=== PATIENT | female | born 1940 | race Asian ===

== ENCOUNTER → 2016-08-06 | Outpatient (CLI) | payer OTHER ==
[~2016-08-06] MED LIST: B-CO1CAP5 PO; BIOT1CAP3 PO; CALC-51 PO; CEPH500C2 PO; CHOL1TAB46 PO; GLUC10007 PO; HYDR-5688 PO; LUTE15CA PO; MECL1TAB42 PO; MELA3CAP PO; MULT-506 PO; OMEG10007 PO; TRAZ50TA35 PO; VITA100C4 PO
--- NOTE | 2016-08-06 15:40 | MAMMOGRAPHY REPORT ---
BILATERAL DIGITAL SCREENING MAMMOGRAM WITH CAD: 08/06/2016 CLINICAL HISTORY: Routine screening. Patient has no complaints. TECHNIQUE: Current study was also evaluated with a Computer Aided Detection (CAD) system. Bilatera l CC and MLO views were obtained. COMPARISON: Comparison is made to exams dated: 08/04/2015 mammogram, 08/02/2014 mammogram, 08/01/2013 ma mmogram, 07/31/2012 mammogram, 07/29/2011 mammogram, and 07/28/2010 mammogram - [facility] enter. BREAST COMPOSITION: The tissue of both breasts is heterogeneously dense, which may obscure small ma sses. FINDINGS: There is an approximately 2.8 cm focal asymmetry seen within the right upper inner quadra nt, for which spot compression tomosynthesis views and possible breast ultrasound are recommended fo r further evaluation. The remainder of both breasts are stable compared to prior exams, without suspicious masses, calcifi cations, or areas of architectural distortion noted. Bilateral benign-appearing calcifications are stable compared to multiple prior exams. IMPRESSION: ACR BI-RADS CATEGORY 0: INCOMPLETE EVALUATION: NEED ADDITIONAL IMAGING EVALUATION Right breast focal asymmetry, for which additional imaging evaluation is recommended. The patient w ill be called to schedule an appointment. Approximately 10% of breast cancers are not detected with mammography. A negative mammographic repor t should not delay biopsy if a clinically suggestive mass is present. Rochelle Camejo M.D. /:08/06/2016 14:03:06 Manager Real Estate: Demetra Figueroa RT(R)(Aaliyah)(BD), [facility] letter sent: Addl Imaging 0 BI-RADS Code: ACR BI-RADS Category 0: Incomplete Evaluation: Need Additional Imaging Evaluation
== END | disposition home or self-care (01) ==
LOC: C.MAMM 10:21
PROVIDERS: ATTEND Internal Medicine
DX: Z12.31 Encounter for screening mammogram for malignant neoplasm of breast (principal); R92.8 Other abnormal and inconclusive findings on diagnostic imaging of breast

== ENCOUNTER → 2016-08-18 | Outpatient (CLI) | payer OTHER ==
--- NOTE | 2016-08-18 14:54 | MAMMOGRAPHY REPORT ---
UNILATERAL RIGHT DIGITAL DIAGNOSTIC MAMMOGRAM TOMOSYNTHESIS AND TARGETED RIGHT ULTRASOUND: 08/18/2016 CLINICAL HISTORY: Callback from screening mammogram for right breast asymmetry. At the time of the diagnostic workup, the patient reports a new palpable lump with associated pain in the right breast which she has noticed since her mammogram. TECHNIQUE: Breast tomosynthesis in addition to standard 2D mammography was performed. Spot compression right CC and MLO 2-D and tomosynthesis images were obtained. COMPARISON: Comparison is made to exams dated: 08/04/2015 mammogram, 08/01/2013 mammogram, 08/02/2014 ma mmogram, 07/31/2012 mammogram, 07/29/2011 mammogram, and 07/28/2010 mammogram - [facility] enter. BREAST COMPOSITION: The tissue of the right breast is heterogeneously dense, which may obscure smal l masses. FINDINGS: Spot compression views of the right breast demonstrate a persistent ill-defined asymmetry in the right upper and slightly medial right breast. The area is ill-defined and difficult to prosper ure mammographically but measures approximately 2.6 cm. Targeted ultrasound was performed of the area of the mammographic mass as well as the area of the pa lpable lump pointed out by the patient. In the right breast at 12:00, 2 cm from the nipple, there i s a hypoechoic solid mass with non-circumscribed margins which measures 1.9 x 1.3 x 2.1 cm. This co rresponds with the mammographic asymmetry and also corresponds with the tender palpable lump pointed out by the patient. The mass is suspicious for malignancy and ultrasound guided core needle biopsy is recommended for further evaluation. Targeted ultrasound was performed of the right axilla, which shows no clear evidence of axillary isidra nopathy. IMPRESSION: ACR BI-RADS CATEGORY 5: HIGHLY SUGGESTIVE OF MALIGNANCY, TARGETED ULTRASOUND ACR BI-RAD S CATEGORY 5: HIGHLY SUGGESTIVE OF MALIGNANCY Hypoechoic solid 2.1 cm mass in the right breast at 12:00 on ultrasound, which corresponds with the new mammographic focal asymmetry as well as a tender palpable lump pointed out by the patient. The mass is suspicious for malignancy and ultrasound-guided core needle biopsy is recommended for furthe r evaluation. A phone call was made to the physician's office to confirm faxed results were received. The patient has been verbally notified of the results. She tentatively scheduled the biopsy before leaving the department. Approximately 10% of breast cancers are not detected with mammography. A negative mammographic repor t should not delay biopsy if a clinically suggestive mass is present. Rochelle Camejo M.D. ah/:08/18/2016 10:41:02 Slasher Sawyer: Dorcas GUERRA(Eneida)(Aaliyah), [facility] letter sent: Abnormal 4/5 BI-RADS Code: ACR BI-RADS Category 5: Highly Suggestive Of Malignancy Ultrasound BI-RADS: ACR BI-RA DS Category 5: Highly Suggestive Of Malignancy
== END | disposition home or self-care (01) ==
LOC: C.MAMM 10:00
PROVIDERS: ATTEND Internal Medicine
DX: N63 Unspecified lump in breast (principal); R92.8 Other abnormal and inconclusive findings on diagnostic imaging of breast

== ENCOUNTER → 2016-08-26 | Outpatient (CLI) | payer OTHER ==
--- NOTE | 2016-08-26 11:23 | Discharge Instructions ---
Discharge Instructions Procedure Procedure Date: August 26, 2016. Reason for visit: Right Mass. Discharge Discharge Date: August 26, 2016. Discharge Diagnosis: status post breast biopsy Instructions Activity Recommendations: Additional Limitations (see below) Return to School/Work: no limitations Recommended Home Diet: No Limitations Provider Instructions: ACTIVITY RECOMMENDATIONS: * No lifting, pushing, pulling or exercising the affected side for three days. RETURN TO SCHOOL/WORK: * You may return to work/school after the procedure, but do not perform any strenuous activities for 24 to 48 hours. MEDICATIONS: * Tylenol (two 325 mg) every four to six hours if needed for mild pain (if not allergic to Tylenol). DIET: * Resume previous diet. SPECIAL CARE INSTRUCTIONS: * Keep biopsy site dry for 24 hours. May shower after 24 hours, but do not soak (bathe) incision. * May remove Tegaderm (plastic patch) tomorrow AFTER showering. * Leave the steri-strips on for one week. Allow the steri-strips to fall off by themselves. If not off after one week, you may remove them. You may place a Bandaid crosswise over the strips, if desired. * Apply ice 10 minutes on and 10 minutes off as needed. * Wear a bra at bedtime to sleep more comfortably for 2-3 days. * Your referring physician should have the results after approximately 5 to 7 business days. * Call for unusual bleeding, fever, drainage, etc or if you have any questions call during normal business hours or after hours call Dr Camejo, . FOLLOW UP VISIT: Follow-up with Referring Physician as scheduled. Allergies Coded Allergies: Methylprednisolone (Verified Allergy, Intermediate, swelling of lips, 12/21) Shruthi Citnron Recommendations: Call your doctor if: * Temperature above 101 degrees * Pain not relieved by pain medicine ordered * There is increased drainage or redness from any incision * You have any unanswered questions or concerns. Your Doctors Instructions noted above were prepared by provider Rochelle Camejo. Patient Signature Section: Patient Instructions Signature Page Ann Jayor Patient (or Guardian) Signature/Date: I have read and understand the instructions given to me by my caregivers. Caregiver/RN/Doctor Signature/Date: The above-named patient and/or guardian has received patient instructions on this date. + Original Patient Signature Page (only) stays with chart. Please make copy for patient.
--- NOTE | 2016-08-26 14:04 | MAMMOGRAPHY REPORT ---
ULTRASOUND GUIDED BIOPSY RIGHT BREAST: 08/26/2016 CLINICAL HISTORY: Mass right breast. PATIENT CONSENT: The procedure, risks and benefits were discussed with the patient and informed writ ten consent was obtained. A timeout was performed immediately prior to the procedure. PROCEDURE DESCRIPTION: With ultrasound guidance, aseptic technique, and lidocaine as the local anest hetic (1% lidocaine to anesthetize the skin and 1% lidocaine with epinephrine to anesthetize the jennie per tissues), the mass of concern in the right 12:00 breast was sampled 5 times with a 14-gauge Achi hina biopsy needle. A metallic localizer clip was placed at the edge of the mass, as the tissue was too dense to advance the clip centrally into the mass. Direct pressure was applied to the site imme diately post procedure and hemostasis was achieved. Postprocedure unilateral mammograms were perfor med to confirm placement of the clip in the expected location of the breast mass. The patient dangelo ated the procedure without complication. She was given wound care instructions. The specimens were sent to pathology for analysis. COMPARISON: Comparison is made to exams dated: 08/18/2016 mammogram, 08/18/2016 ultrasound, 08/06/2016 mammogram, 08/04/2015 mammogram, 08/02/2014 mammogram, and 08/01/2013 mammogram - [facility] enter. IMPRESSION: ULTRASOUND GUIDED BIOPSY Ultrasound-guided core needle biopsy of the right 12:00 breast mass, with clip placement. The patie nt will receive pathology results from her referring provider. Rochelle Camejo M.D. /:08/26/2016 11:26:01 Area Representative: Dorcas Sarabia, [facility]
--- NOTE | 2016-08-26 14:08 | MAMMOGRAPHY REPORT ---
UNILATERAL RIGHT DIGITAL DIAGNOSTIC MAMMOGRAM: 08/26/2016 CLINICAL HISTORY: Status post right breast biopsy. TECHNIQUE: Postprocedural right CC and ML views were obtained. COMPARISON: Comparison is made to exams dated: 08/18/2016 mammogram, 08/06/2016 mammogram, 08/04/2015 ma mmogram, 08/02/2014 mammogram, and 08/01/2013 mammogram - [facility]. BREAST COMPOSITION: The tissue of the right breast is heterogeneously dense, which may obscure smal l masses. FINDINGS: A new biopsy marker clip is seen in the right breast status post ultrasound guided biopsy of the right 12:00 breast mass. The mass is not well seen mammographically although the biopsy cli p appears to be at the edge of the superior aspect of the mass. No significant postbiopsy hematoma is seen. IMPRESSION: POST PROCEDURE IMAGING FOR MARKER PLACEMENT New biopsy marker clip status post ultrasound guided biopsy of the right 12:00 breast mass. Patholo gy results are pending. Approximately 10% of breast cancers are not detected with mammography. A negative mammographic repor t should not delay biopsy if a clinically suggestive mass is present. Rochelle Camejo M.D. /:08/26/2016 11:28:59 Criminal Justice Department Chair: Dorcas Sarabia, [facility] BI-RADS Code: Post Procedure Imaging For Marker Placement
== END | disposition home or self-care (01) ==
LOC: C.MAMM 10:49
PROVIDERS: ATTEND Internal Medicine
DX: C50.911 Malignant neoplasm of unspecified site of right female breast (principal)

== ENCOUNTER → 2016-09-15 | Outpatient (CLI) | payer OTHER ==
--- NOTE | 2016-09-15 10:21 | DIAGNOSTIC IMAGING REPORT ---
ABDOMINAL/CHEST ULTRASOUND HISTORY: Abdominal wall mass of upper epigastric region. COMPARISON: None. TECHNIQUE: Sonography of the upper abdomen/lower chest was performed at site of palpable abnormality. FINDINGS: No mass or fluid collection was identified by sonography. The palpable abnormality appears to correspond to the xiphoid process of the sternum. IMPRESSION: No mass or fluid collection by sonography. The palpable abnormality appears to correspond to the xiphoid process of the sternum. Electronically signed by: Refugio Teresa M.D. 09/15/2016 10:20 AM Dictated Date/Time: 09/15/2016 10:18 AM
== END | disposition home or self-care (01) ==
LOC: C.ULTRBC 09:49
PROVIDERS: ATTEND Physician Assistant
DX: R19.06 Epigastric swelling, mass or lump (principal)

== ENCOUNTER 2016-09-20 08:49 | Observation (INO) | payer OTHER ==
[2016-09-16 13:49] VITALS: BMI 25.0
--- NOTE | 2016-09-16 14:46 | PAT Medication Instructions ---
Service Date Sep 16, 2016. Current Home Medication List B-Complex W/Biotin & Folic Aci (Super B-Complex), 1 CAPSULE PO QAM Biotin (Biotin), 5,000 MCG PO QAM Cholecalciferol (Vitamin D3), 1,000 INTER.UNIT PO QAM Fish Oil (Grambling-3), 1 CAP PO QAM Meclizine Hcl (Meclizine Hcl), 25 MG PO Q6 PRN for Dizziness or Vertigo Multivitamin (Multivitamin), 1 TAB PO QAM Trazodone Hcl (Trazodone), Unknown Dose PO HS Medication Instructions For Your Scheduled Surgery Meclizine Hcl (Meclizine Hcl), 25 MG PO Q6 PRN for Dizziness or Vertigo (not taking currently) - Hold the following medications starting today 09/16/16: Fish Oil (Grambling-3), 1 CAP PO QAM (stopped 09/13/16) Biotin (Biotin), 5,000 MCG PO QAM Lutein - Hold the following medications the morning of surgery: Multivitamin (Multivitamin), 1 TAB PO QAM B-Complex W/Biotin & Folic Aci (Super B-Complex), 1 CAPSULE PO QAM Cholecalciferol (Vitamin D3), 1,000 INTER.UNIT PO QAM - Take the following medications as scheduled the night before surgery: Trazodone Hcl (Trazodone), Unknown Dose PO HS If you have any questions please call us at [phone] or [phone] ( Ale) or [phone]
[2016-09-16 15:27] LABS: BASO % 1.2 %; BASO ABS # 0.05 K/uL (0-0.2); COMPLETE YES; EOS % 0.7 %; HEMATOCRIT 38.1 % (37-47); LYMPH % 40.7 %; LYMPH ABS # 1.76 K/uL (1.2-3.4); MEAN CELL VOLUME 90.5 fL (80-100); MEAN CORPUSCULAR HEMOGLOBIN 29.9 pg (25-34); MEAN CORPUSCULAR HGB CONC 33.1 g/dl (32-36); MEAN PLATELET VOLUME 8.2 fL (7.4-10.4); MONO % 6.3 %; NEUT % 51.1 %; PLATELET COUNT 301 K/uL (130-400); RED BLOOD COUNT 4.21 M/uL (4.2-5.4); WHITE BLOOD COUNT 4.32 K/uL (4.8-10.8)
[2016-09-16 15:34] LABS: BUN/CREATININE RATIO 25.1 (10-20); CALCIUM 8.5 mg/dl (8.5-10.1); CREATININE 0.71 mg/dl (0.60-1.20); POTASSIUM 4.2 mmol/L (3.5-5.1)
[2016-09-20] VITALS (8 sets, daily range): BP systolic 109–132; BP diastolic 60–75; PULSE 67–82; TEMP 36.4–36.9; O2SAT 95–100; Ht 152.4 cm; Wt 59.3 kg
[~2016-09-20] VITALS: Ht 152.4 cm; Wt 59.3 kg
[~2016-09-20 08:49] MED LIST changes: -CALC-51 PO; +CEFAZOLIN 2000 MG/60 ML D5W IV SCH; -CEPH500C2 PO; -GLUC10007 PO; -HYDR-5688 PO; +LACTATED RINGER'S 1000ML 1,000 ML IV SCH; -LUTE15CA PO; -MELA3CAP PO; -VITA100C4 PO
--- NOTE | 2016-09-20 10:25 | DIAGNOSTIC IMAGING REPORT ---
Lymphoscintigraphy LYMPH SENTINEL NODE ID CLINICAL HISTORY: BREAST CA breast carcinoma TECHNIQUE: Sequential periareolar injection of a total of 0.5 mCi technetium 99m lymphocele. COMPARISON STUDY: None FINDINGS: Successful periareolar injection IMPRESSION: Successful periareolar injection pre lymphoscintigraphy Electronically signed by: Jaylen Banegas M.D. 09/20/2016 10:23 AM Dictated Date/Time: 09/20/2016 10:22 AM
[2016-09-20] MEDS ORDERED: MIDAZOLAM HCL 1 MG/ML 2ML VIAL ONE (11:05)
[2016-09-20] MEDS ORDERED: FENTANYL CITRATE INJ 50 MCG/1 ML 2 ML VIAL ONE (11:05)
--- NOTE | 2016-09-20 11:15 | History & Physical Bridge Note ---
H&P Re-Evaluation Bridge Note: I have examined the patient, reviewed the History & Physical and in the interval since the performance of the History & Physical I have noted the following changes of clinical significance: No changes noted
[2016-09-20] MEDS ORDERED: ISOSULFAN BLUE 10 MG/ML VIAL 5 ML ONE (11:18)
[2016-09-20] MEDS ORDERED: BUPIVACAINE 0.5 % 5 MG/1 ML MPF 30ML VIAL ONE (11:18)
[2016-09-20] MEDS ORDERED: PROPOFOL IV EMULSION 10 MG/ML 20 ML VIAL IV ONE (11:44)
[2016-09-20] MEDS ORDERED: METHYLENE BLUE 0.5% 10 ML VIAL ONE (12:29)
[2016-09-20] MEDS ORDERED: MoRPHine SULFATE 2 MG/ML CARP ONE (12:39)
[2016-09-20] MEDS ORDERED: ONDANSETRON INJ 2 MG/ML 2 ML VIAL IV PRN (12:45)
[2016-09-20] MEDS ORDERED: KETOROLAC TROMETHAMINE 30 MG/ML VIAL IV. PRN (12:45)
[2016-09-20] MEDS ORDERED: ATROPINE SULFATE 0.1 MG/ML 5ML SYR IV PRN (12:45)
[2016-09-20] MEDS ORDERED: LABETALOL HCL IV 5 MG/ML 20ML IV PRN (12:45)
[2016-09-20] MEDS ORDERED: LACTATED RINGER'S 1000ML 1,000 ML IV SCH (13:09)
--- NOTE | 2016-09-20 13:09 | [facility] Post Operative Brief Note ---
Immediate Operative Summary Operative Date Sep 20, 2016. Pre-Operative Diagnosis Right Breast Cancer Post-Operative Diagnosis Right Breast Cancer Procedure(s) Performed Right partial mastectomy with sentinel lymph node bx Surgeon Dr. Proctor House Carpenter Helper Surgeon(s) JON Baxter Estimated Blood Loss 20cc Findings SLN negative on frozen Specimens A) Right sentinel lymph node, frozen specimen- sent to lab 12:17 by OR aide B) Right breast tissue- long silk lateral, short nishi is medial, plain gut is superior, skin is anterior- sent to lab at 12:37 C) Additional superior right breast tissue- silk is lateral, methylene blue is new margin D) Additional inferior tissue (right breast)- silk is lateral, methylene blue is new margin Anesthesia gen Complication(s) None Disposition Recovery Room / PACU
[2016-09-20] MEDS ORDERED: MECLIZINE HCL 25 MG TAB PO PRN (13:15)
[2016-09-20] MEDS ORDERED: ONDANSETRON INJ 2 MG/ML 2 ML VIAL ONE (13:16)
[2016-09-20] MEDS ORDERED: DEXAMETHASONE SOD INJ 4 MG/ML VIAL ONE (13:16)
[2016-09-20] MEDS: FENTANYL CITRATE INJ 50 MCG/1 ML 2 ML VIAL IV PRN ×4 (13:30→13:46)
[2016-09-20] MEDS ORDERED: IV FLUIDS COMPLETED PRN (14:00)
--- NOTE | 2016-09-20 14:02 | Anesthesiology Progress Note ---
Anesthesia Post Op Note Date & Time Sep 20, 2016 at 14:02 Vital Signs Pain Intensity: 4 Vital Signs Past 12 Hours Date Time Temp Pulse Resp B/P (MAP) Pulse Ox O2 Delivery O2 Flow Rate FiO2 09/20/16 13:50 71 19 125/67 100 Nasal Cannula 2 09/20/16 13:40 71 18 134/65 100 Mask 10 09/20/16 13:30 74 18 139/59 100 Mask 10 09/20/16 13:21 36.4 77 12 139/70 100 Mask 10 09/20/16 10:03 36.9 72 20 113/60 (77) 99 Room Air Notes Mental Status: alert / awake / arousable, participated in evaluation Pt Amnestic to Procedure: Yes Nausea / Vomiting: adequately controlled Pain: adequately controlled Airway Patency, RR, SpO2: stable & adequate BP & HR: stable & adequate Hydration State: stable & adequate Anesthetic Complications: no major complications apparent
[2016-09-20] MEDS ORDERED: MoRPHine SULFATE 4 MG/ML 1 ML CARP\\VIAL IV PRN (14:45)
[2016-09-20] MEDS ORDERED: HYDROCODONE/ACETAMOPHEN 5/325MG TAB PO PRN ×2 (14:45)
[2016-09-20] MEDS ORDERED: MoRPHine SULFATE 2 MG/ML CARP IV PRN (14:45)
[2016-09-20] MEDS ORDERED: PNEUMOCOCCAL POLYSACCHARIDES 25 MCG/0.5 ML VIAL/SYR IM. ONE (15:45)
[2016-09-20] MEDS ORDERED: PNEUMOCOCCAL ADMINISTRATION CHARGE ONE (15:45)
--- NOTE | 2016-09-20 15:55 | OPERATIVE REPORT ---
DATE OF OPERATION: 09/20/2016 NAME OF OPERATION: Right partial mastectomy with sentinel lymph node biopsy. PREOPERATIVE DIAGNOSIS: Right breast cancer. POSTOPERATIVE DIAGNOSIS: Same. STAFF SURGEON: Dr. Joe Proctor. DEMONSTRATOR SALES: Joni Park PA-C DESCRIPTION OF PROCEDURE: The patient was brought into the operating room and placed on the operating table in the supine position. Her right breast and axilla were prepped and draped in the usual fashion. She had undergone injection in radiology for the sentinel lymph node biopsy. Using the Neoprobe, we were able to identify activity in the right axilla. Incision was made in the right axilla, carrying dissection down deeply, identifying the sentinel node, and sending it for routine frozen section, which was negative. During the frozen section, we did perform lumpectomy. The patient's tumor was approximately 12:30 in the right breast. It was relatively large. Elliptical incision was made around this, carrying dissection down to the muscle and then marking the tissue by the skin and the skin was anterior, long silk suture lateral, short silk suture medial, and plain gut suture was superior. Additional tissue was taken both superior and inferior, both marked with a silk suture lateral and methylene blue on the new margin. At this point, the incisions were closed by reapproximating the deep tissue using 2-0 plain catgut suture and then the skin using 4-0 nylon suture in the axilla and 5-0 Prolene suture for the breast skin. I attest to the content of the Intraoperative Record and any orders documented therein. Any exception s are noted below.
[2016-09-20] MEDS: CEFAZOLIN IV 1,000 MG in DEXTROSE 5% 50ML 50 ML IV SCH ×2 (18:46→23:17)
--- NOTE | 2016-09-20 20:42 | INTERNAL MEDICINE CONSULTATION ---
DATE OF CONSULTATION: 09/20/2016 REASON FOR CONSULTATION: Medical, co care. HISTORY OF PRESENT ILLNESS: The patient is a 76-year-old female, who came to the hospital for an elective right partial mastectomy with sentinel lymph node biopsy. Procedures went uneventful and the patient was then taken to the floor. We were consulted for medical co care given her age and comorbidities. REVIEW OF SYSTEMS: The patient denies any headache, double vision, blurry vision. Denies any chest pain, palpitations. Denies any cough, wheezing, shortness of breath. Denies any diarrhea, blood in the stool. Denies any burning sensation in the urine or blood. Denies any focal weakness, tingling, numbness. The rest of the review of systems is negative. PAST MEDICAL HISTORY: None. The patient was healthy prior to the procedure and only takes vitamin supplements. SOCIAL HISTORY: Does not smoke, does not drink alcohol, has no bad habits. She is an , currently located in [facility]. FAMILY HISTORY: Noncontributory. MEDICATIONS AT HOME: None, only vitamin supplements. ALLERGY: TO METHYLPREDNISOLONE. LABORATORY DATA: White blood cell count 4.3, hemoglobin is 12.6, platelet count is 301. Sodium 140, potassium 4.2, BUN is 18, creatinine 0.7. PHYSICAL EXAMINATION: VITAL SIGNS: Temperature 36.2, pulse 72, respirations 18, blood pressure 123/68. HEENT: No jaundice, no pallor. Wet mucous membranes. NECK: Supple. HEART: S1, S2 normal. No gallop, rub or murmur. LUNGS: Clear to auscultation bilaterally. Normal chest wall expansion. ABDOMEN: Soft, nontender, nondistended. NEUROLOGIC: Awake, alert, oriented to time, place, and person. Moves all extremities. Sensation intact. Cranial nerves II-XII appear to be intact. SKIN: No rash or erythema. ASSESSMENT AND PLAN: Right breast cancer status post elective right partial mastectomy with sentinel lymph node biopsy. PLAN: At this point, the patient appears to be medically stable. Labs have been reviewed and they look good. Vitals also look good. The patient has no complaints. DVT prophylaxis and pain management as per primary team. At this point, we will follow the patient p.r.n. Please call us with any questions. Otherwise, the patient is cleared for discharge from the medical perspective when appropriate with the primary team. We will sign off and call us if you have any questions. NESHAD
[2016-09-21] MEDS ORDERED: TRAZODONE HCL 50 MG TAB PO ONE (00:15)
[2016-09-21 03:31] VITALS: BP 103/64; PULSE 80; TEMP 36.7; O2SAT 97
[2016-09-21] MEDS ORDERED: HYDR-5688 PO (05:22)
--- NOTE | 2016-09-21 05:24 | Discharge Instructions ---
Discharge Instructions Date of Service Sep 21, 2016. Admission Reason for Admission: Right Breast Cancer Discharge Discharge Diagnosis / Problem: Rt breast cancer Discharge Goals Goal(s): Decrease discomfort, Improve function, Improve disease control Activity Recommendations Activity Limitations: as noted below Lifting Limitations: no more than 10 pounds Exercise/Sports Limitations: until after follow-up appointment May Resume Sexual Activity: when tolerated Shower/Bathe: tomorrow Driving or Machine Use: resume 3 days after discharge SPECIAL CARE INSTRUCTIONS: * Cover incisions and change daily for comfort/drainage. * May use ibuprofen for pain as tolerated. * Expect some swelling and bruising. Call your doctor if: * Temperature above 101 degrees * Pain not relieved by pain medicine ordered * There is increased drainage or redness from any incision * You have any unanswered questions or concerns [phone]. FOLLOW UP VISIT: If not already scheduled, please call the office for a follow-up visit. for next week- wound check and some suture removal OFFICE PHONE NUMBER: Dr. Proctor Office . Current Hospital Diet Patient's current hospital diet: Regular Diet Discharge Diet Recommended Diet: Regular Diet Procedures Procedures Performed: Right breast lumpectomy with sentinel lymph node biopsy Pending Studies Studies pending at discharge: no Medical Emergencies . Who to Call and When: Medical Emergencies: If at any time you feel your situation is an emergency, please call 911 immediately. . Non-Emergent Contact Non-Emergency issues call your: Primary Care Provider, Surgeon . "Provider Documentation" section prepared by Joe Proctor. . VTE Core Measure Inpt VTE Proph given/why not?: SCD's
[2016-09-21] MEDS: CEFAZOLIN IV 1,000 MG in DEXTROSE 5% 50ML 50 ML IV SCH (05:42)
[2016-09-21] MEDS ORDERED: CEPH500C2 PO (06:16)
--- NOTE | 2016-09-21 06:55 | DISCHARGE SUMMARY ---
PRINCIPAL DIAGNOSIS: Right breast cancer. PROCEDURES: The patient underwent right breast partial mastectomy with sentinel lymph node biopsy. HISTORY OF PRESENT ILLNESS: The patient is a 76-year-old female with a core biopsy proven right breast cancer for definitive surgery. HOSPITAL COURSE: The patient was brought into the hospital on 09/20/2016, where she was taken to the operating room and she underwent right partial mastectomy with sentinel lymph node biopsy. She has done quite well and was felt stable for discharge home today to be seen in the surgical clinic next week.
--- NOTE | 2016-09-21 07:38 | Anesthesiology Progress Note ---
Anesthesia Post Op Note Date & Time Sep 21, 2016 at 07:37 Vital Signs Pain Intensity: 0.0 Vital Signs Past 12 Hours Date Time Temp Pulse Resp B/P (MAP) Pulse Ox O2 Delivery O2 Flow Rate FiO2 09/21/16 03:31 36.7 80 16 103/64 (77) 97 Room Air 09/20/16 23:20 Room Air 09/20/16 23:00 36.6 73 18 109/66 (80) 95 Room Air Notes Mental Status: alert / awake / arousable, participated in evaluation Pt Amnestic to Procedure: Yes Nausea / Vomiting: adequately controlled Pain: adequately controlled Airway Patency, RR, SpO2: stable & adequate BP & HR: stable & adequate Hydration State: stable & adequate Anesthetic Complications: no major complications apparent
[2016-09-21 07:53] VITALS: O2SAT 96
[2016-09-21 07:55] VITALS: BP 112/62; PULSE 71; TEMP 36.3; O2SAT 96
[2016-09-21 09:55] VITALS: BP 112/62; PULSE 71; TEMP 36.3; O2SAT 96
[2016-10-12] MEDS ORDERED: GLUC10007 PO (08:36)
[2016-10-12] MEDS ORDERED: LUTE15CA PO (08:36)
== END 2016-09-21 10:26 | disposition home health service (06) ==
LOC: C.ACU 08:49 → C.MSW 09:20 → ENRESERV 13:48
PROVIDERS: ADMIT Surgery; ATTEND Surgery
DX: C50.911 Malignant neoplasm of unspecified site of right female breast (principal); Z17.0 Estrogen receptor positive status [ER+]; E78.00 Pure hypercholesterolemia, unspecified; E73.9 Lactose intolerance, unspecified; M85.80 Other specified disorders of bone density and structure, unspecified site; H81.09 Meniere's disease, unspecified ear; D76.3 Other histiocytosis syndromes; N60.11 Diffuse cystic mastopathy of right breast

== ENCOUNTER → 2017-03-02 | Outpatient (CLI) | payer OTHER ==
[~2017-03-02] MED LIST changes: -CEFAZOLIN 2000 MG/60 ML D5W IV SCH; +GLUC10007 PO; -LACTATED RINGER'S 1000ML 1,000 ML IV SCH; +LUTE15CA PO
--- NOTE | 2017-03-03 07:55 | MAMMOGRAPHY REPORT ---
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 Surgical pathology from the right lumpectomy demonstrated ency sted papillary carcinoma with negative margins. She presents for first follow-up in the right breast after surgery to establish new baseline. TECHNIQUE: Right breast tomosynthesis in addition to standard 2D mammography was performed. Spot mag nification right CC and ML views were also obtained. Current study was also evaluated with a Compute r Aided Detection (CAD) system. COMPARISON: Comparison is made to exams dated: 08/26/2016 mammogram, 08/26/2016 ultrasound biopsy, 08/02 mammogram, 08/18/2016 ultrasound, 08/06/2016 mammogram, and 08/04/2015 mammogram - [facility]. BREAST COMPOSITION: The tissue of the right breast is heterogeneously dense, which may obscure small masses. FINDINGS: There is expected architectural distortion in the medial right breast, in the area of prio r lumpectomy. Mild skin irregularity and skin thickening in the anterior right breast. There are pu nctate microcalcifications in the lateral middle and anterior right breast that appears similar to nu merous prior mammograms dating back to at least 2009, therefore likely benign. No new suspicious mas s, unexpected architectural distortion, asymmetry or suspicious calcifications identified in the righ t breast. IMPRESSION: ACR-BI-RADS CATEGORY 3: PROBABLY BENIGN Expected post treatment changes in the right breast, without definite mammographic evidence of malign lucinda. Recommend another close follow-up right diagnostic tomosynthesis mammogram and possible ultras ound in 6 months to ensure stability after treatment. Annual left mammography will also be due at at time. These results and recommendations were discussed with the patient at the time of the exam. Approximately 10% of breast cancers are not detected with mammography. A negative mammographic report should not delay biopsy if a clinically suggestive mass is present. Yesika Elizabeth M.D. ay/:03/02/2017 16:56:16 Nuclear Medicine Specialist: Ivana GUERRA(R)(Aaliyah), [facility] letter sent: Follow Up Recommended 3 BI-RADS Code: ACR-BI-RADS Category 3: Probably Benign
== END | disposition home or self-care (01) ==
LOC: C.MAMM 13:54
PROVIDERS: ATTEND Internal Medicine Hematology
DX: Z08 Encounter for follow-up examination after completed treatment for malignant neoplasm (principal); Z85.3 Personal history of malignant neoplasm of breast

== ENCOUNTER → 2017-05-26 | Outpatient (CLI) | payer OTHER ==
[2017-05-26 10:16] LABS: ALBUMIN 3.7 gm/dl (3.4-5.0); ALT/SGPT 17 U/L (12-78); BLOOD UREA NITROGEN 15 mg/dl (7-18); CALCIUM 8.8 mg/dl (8.5-10.1); CARBON DIOXIDE 31 mmol/L (21-32); CHOLESTEROL 167 mg/dl (0-200); CREATININE 0.67 mg/dl (0.60-1.20); GLUCOSE 106 mg/dl (70-99); POTASSIUM 3.7 mmol/L (3.5-5.1); SODIUM 138 mmol/L (136-145)
[2017-05-26 10:19] LABS: ALKALINE PHOSPHATASE 46 U/L (45-117); AST/SGOT 17 U/L (15-37); LDL CHOLESTEROL CALCULATED 86 mg/dl; TOTAL PROTEIN 7.4 gm/dl (6.4-8.2)
== END | disposition home or self-care (01) ==
LOC: C.LAB1850 09:18
PROVIDERS: ATTEND Internal Medicine
DX: E78.00 Pure hypercholesterolemia, unspecified (principal); R73.01 Impaired fasting glucose

== ENCOUNTER → 2017-08-15 | Outpatient (CLI) | payer OTHER | END | disposition home or self-care (01) | LOC: C.MAMM 15:33 | PROVIDERS: ATTEND Internal Medicine Hematology & Oncology | DX: M85.852 Other specified disorders of bone density and structure, left thigh (principal); D05.11 Intraductal carcinoma in situ of right breast ==